=== PATIENT | male | born 1970 | race Caucasian/White ===

== ENCOUNTER 2017-11-03 09:50 | Day surgery (SDC) | payer OTHER ==
[~2017-11-03] VITALS: Ht 182.9 cm; Wt 108.0 kg
== END 2017-11-03 12:26 | disposition home or self-care (01) ==
LOC: ORSCSDS 09:50
PROVIDERS: Orthopaedic Surgery
PROC: 01N50ZZ Release Median Nerve, Open Approach (ICD-10-PCS; principal; 2017-11-03 11:00)
DX: G56.01 Carpal tunnel syndrome, right upper limb (principal); E66.9 Obesity, unspecified; Z68.32 Body mass index [BMI] 32.0-32.9, adult; Z87.891 Personal history of nicotine dependence
CPT/HCPCS: J0690; J2250; J7120

== ENCOUNTER → 2020-04-01 | Outpatient (CLI) | payer OTHER | END | disposition home or self-care (01) | LOC: LAB 17:21 → LAB SHORT 17:21 | DX: D18.01 Hemangioma of skin and subcutaneous tissue (principal); D48.5 Neoplasm of uncertain behavior of skin; L81.4 Other melanin hyperpigmentation; L08.9 Local infection of the skin and subcutaneous tissue, unspecified | CPT/HCPCS: 87070; 87077; 87147; 87186; 87205 ==

== ENCOUNTER 2025-01-13 08:59 | Observation (INO) | payer OTHER ==
[~2025-01-13] VITALS: Ht 213.4 cm; Wt 115.5 kg
[2025-01-13] VITALS (7 sets, daily range): BP systolic 127–165; BP diastolic 81–101
[2025-01-13] MEDS ORDERED: Prinivil10 MG PO (09:27)
[2025-01-13 09:37] LABS: BASOPHILS ABSOLUTE AUTO 0.07 K/mm3 (0.00-0.23); BASOPHILS PERCENT AUTO 1 % (0-2); EOSINOPHILS ABSOLUTE AUTO 0.21 K/mm3 (0.00-0.68); EOSINOPHILS PERCENT AUTO 3 % (0-6); Hematocrit 47.8 % (37.0-53.0); Hemoglobin 17.2 g/dL (13.5-17.5); IMMATURE GRAN ABSOLUTE AUTO 0.03 K/mm3 (0.00-0.10); IMMATURE GRAN PERCENT AUTO 0 % (0-1); LYMPHOCYTES ABSOLUTE AUTO 1.68 K/mm3 (0.84-5.20); LYMPHOCYTES PERCENT AUTO 22 % (21-46); MONOCYTES ABSOLUTE AUTO 0.54 K/mm3 (0.16-1.47); MONOCYTES PERCENT AUTO 7 % (4-13); Mean Corpuscular HGB Conc 36.0 g/dL (31.5-36.5); Mean Corpuscular Volume 97 fL (80-100); NEUTROPHILS ABSOLUTE AUTO 5.06 K/mm3 (1.96-9.15); NEUTROPHILS PERCENT AUTO 67 % (41-73); NRBC ABSOLUTE 0.00 K/mm3 (0.00-0.02); NRBC Auto 0.0 /100 WBC (0.0-0.2); Platelet Count 185 K/mm3 (150-400); RDW Coefficient Variation 12.0 % (11.7-14.2); RDW Standard Deviation 42.1 fL (35.1-46.3)
[2025-01-13] MEDS ORDERED: NS 500 ML IV SCH (09:40)
[2025-01-13 10:05] LABS: Alanine Aminotransfer (ALT/SGP 38.0 U/L (12-78); Albumin, Blood 3.7 g/dL (3.4-5.0); Albumin/Globulin Ratio 1.1 (0.8-1.8); Anion Gap 7.0 mmol/L (3-11); Aspartate Aminotrans (AST/SGOT 26.0 U/L (12-37); Bilirubin, Total 0.7 mg/dL (0.1-1.0); Blood Urea Nitrogen 17.0 mg/dL (8-24); CO2, Blood 23.0 mmol/L (21-32); Calcium, Blood 8.4 mg/dL (8.5-10.1); Chloride, Blood 111.0 mmol/L (98-108); Creatinine, Blood 1.11 mg/dL (0.60-1.20); Globulin, Blood 3.3 g/dL (2.2-4.0); Glucose, Blood 110.0 mg/dL (70-99); Magnesium, Blood 2.1 mg/dL (1.6-2.4); Potassium, Blood 4.1 mmol/L (3.5-5.5); Sodium, Blood 137.0 mmol/L (136-145); Total Protein, Blood 7.0 g/dL (6.4-8.2)
[2025-01-13] MEDS ORDERED: Diltiazem HCl 5 MG / ML 5ML Vial IV ONE ×2 (10:25→10:35)
[2025-01-13 12:10] LABS: Thyroid Stimulating Hormone 1.22 uIU/mL (0.360-4.800)
[2025-01-13 14:28] LABS: CHOL/HDL RATIO 5.2; Cholesterol 214 mg/dL (50-200); HDL Cholesterol 41 mg/dL (>39); LDL/HDL RATIO 3.4; Low Density Lipoprotein Chol 138 mg/dL (0-110); Triglycerides 177 mg/dL (30-160); Very Low Density Lipoprot Chol 35 mg/dL (6-32)
--- NOTE | 2025-01-13 19:50 | NUR ---
ASSUMPTION OF CARE ASSUMED PT'S CARE AT 1900,BEDSIDE REPORT COMPLETED.PT LAYING IN BED,WIDE AWAKE WATCHING TV.PLAN OF CARE REVIEWED.PT DENIES PAIN,DENIES NUMBNESS/TINGLING,DENIES SOB,DENIES NAUSEA,DENIES NEEDS AT THIS TIME.CALL LIGHT AND PT'S ITEMS WITHIN REACH.MONITORING ONGOING PER CAREPLAN.
--- NOTE | 2025-01-13 19:59 | NUR ---
SHIFT REPORT PT IS A&O X 4, PLEASANT, COOPERATIVE W/ CARE, AND MAKES NEEDS KNOWN. IND/ SBA TO AMBULATE.PT DENIED PAIN ALL DAY, BUT DESCRIBED SLIGHT DISCOMFORT WITH HR FLUCTUATIONS W/ ACTIVITY. A. FIB CAUSED HR TO RANGE FROM 90s TO 150s PRIOR TO SPONTANEOUS CONVERSION TO NSR THIS EVENING. PT HAS SINCE MAINTAINED NSR 70s-80s. BPs STABLE, O2 SAT ABOVE 93% ON RM AIR. CARDIZEM DRIP PT WAS ADMITTED ON HAS SINCE BEEN SWITCHED TO PO. DONAVON CAME IN AND EDUCATED PT AND ON A. FIB AND PLAN OF CARE, PT AND SHOWED GOOD UNDERSTANDING AND WERE ENGAGED WITH CLARIFYING QUESTIONS. VSS.
[2025-01-14 03:21] VITALS: BP 130/88
[2025-01-14 05:18] LABS: BASOPHILS ABSOLUTE AUTO 0.06 K/mm3 (0.00-0.23); BASOPHILS PERCENT AUTO 1 % (0-2); EOSINOPHILS ABSOLUTE AUTO 0.28 K/mm3 (0.00-0.68); EOSINOPHILS PERCENT AUTO 4 % (0-6); Hematocrit 43.4 % (37.0-53.0); Hemoglobin 15.1 g/dL (13.5-17.5); IMMATURE GRAN ABSOLUTE AUTO 0.02 K/mm3 (0.00-0.10); IMMATURE GRAN PERCENT AUTO 0 % (0-1); LYMPHOCYTES ABSOLUTE AUTO 1.68 K/mm3 (0.84-5.20); LYMPHOCYTES PERCENT AUTO 23 % (21-46); MONOCYTES ABSOLUTE AUTO 0.64 K/mm3 (0.16-1.47); MONOCYTES PERCENT AUTO 9 % (4-13); Mean Corpuscular HGB Conc 34.8 g/dL (31.5-36.5); Mean Corpuscular Volume 95 fL (80-100); NEUTROPHILS ABSOLUTE AUTO 4.74 K/mm3 (1.96-9.15); NEUTROPHILS PERCENT AUTO 64 % (41-73); NRBC ABSOLUTE 0.00 K/mm3 (0.00-0.02); NRBC Auto 0.0 /100 WBC (0.0-0.2); Platelet Count 176 K/mm3 (150-400); RDW Coefficient Variation 12.1 % (11.7-14.2); RDW Standard Deviation 42.3 fL (35.1-46.3)
[2025-01-14 05:57] LABS: Alanine Aminotransfer (ALT/SGP 30.0 U/L (12-78); Albumin, Blood 3.1 g/dL (3.4-5.0); Albumin/Globulin Ratio 1.1 (0.8-1.8); Anion Gap 8.0 mmol/L (3-11); Aspartate Aminotrans (AST/SGOT 20.0 U/L (12-37); Bilirubin, Total 1.0 mg/dL (0.1-1.0); Blood Urea Nitrogen 15.0 mg/dL (8-24); CO2, Blood 24.0 mmol/L (21-32); Calcium, Blood 7.7 mg/dL (8.5-10.1); Chloride, Blood 111.0 mmol/L (98-108); Creatinine, Blood 1.02 mg/dL (0.60-1.20); Globulin, Blood 2.9 g/dL (2.2-4.0); Glucose, Blood 113.0 mg/dL (70-99); Potassium, Blood 3.8 mmol/L (3.5-5.5); Sodium, Blood 139.0 mmol/L (136-145); Total Protein, Blood 6.0 g/dL (6.4-8.2)
--- NOTE | 2025-01-14 06:44 | NUR ---
PT MONITORED DURING THE SHIFT.NO C/O CHEST PAIN/PRESSURE/PALPITATION.PT USED THE CALL LIGHT APPROPRIATELY,AMBULATED TO THE BATHROOM INDEPENDENTLY.SINUS RHYTHM IN THE 80'S ON THE MONITOR.PT SLEEPING AT THIS TIME,BREATHING EVEN AND NONLABORED.PT EASILY AROUSABLE.PT DENIES PAIN,DENIES NEEDS.CALL LIGHT AND PT'S ITEMS WITHIN REACH.MONITORING ONGOING PER CAREPLAN.
[2025-01-14 08:03] VITALS: BP 139/96
[2025-01-14] MEDS ORDERED: Diltiazem HCl 300 MG Cap.CD PO ONE (08:32)
[2025-01-14 09:31] VITALS: BP 120/95
--- NOTE | 2025-01-14 09:33 | NUR ---
PATIENT ALERT AND ORIENTED X4. DENIES PAIN. UP TO BATHROOM WITH SBA FOR SAFETY. DENIES PAINS. TELE SHOWING SINUS RHYTHM WITH HR 80-90'S. DENIES CHEST PAIN/PRESSURE/PALPITAITONS. IV SALINE LOCKED. NO SIGNS OF EDEMA. ON ROOM AIR, LUNG SOUNDS CLEAR. DENIES SOB/COUGH. TOLERATING PO DIET. DENIES ABDOMINAL PAIN/NAUSEA. USING BATHROOM IND. SKIN C/D/I. AT BEDSIDE. DR. JAY ROUND THIS AM, THIS RN AT BEDSIDE. PLAN FOR DISCHARGE TODAY. CALL LIGHT IN REACH. DENIES NEEDS AT THIS TIME.
[2025-01-14] MEDS ORDERED: ELIQUIS5 M2 PO (10:58)
[2025-01-14] MEDS ORDERED: DILT180 PO (10:59)
--- NOTE | 2025-01-14 11:24 | NUR ---
DISCHARGE: NO ACUTE CHANGES. AT BEDSIDE FOR DISCHARGE. THIS RN REVIEWED NEW MEDICATIONS, FOLLOW UP WITH PCP AND CARDIOLOGY, SIGNS AND SYMPTOMS OF WHEN TO RETURN AND MEDICATIONS FAXED TO [facility]. IV REMOVED. PATIENT LEFT UNIT WITH ALL PERSONAL BELONGINGS AND DISCHARGE PACKET.
== END 2025-01-14 11:34 | disposition home or self-care (01) ==
LOC: ER 08:59 → PCU 09:00
PROVIDERS: Student in an Organized Health Care Education/Training Program; ADMIT Family Medicine
DX: I48.91 Unspecified atrial fibrillation (principal); I10 Essential (primary) hypertension; E78.5 Hyperlipidemia, unspecified; F10.20 Alcohol dependence, uncomplicated; Z79.899 Other long term (current) drug therapy
CPT/HCPCS: 36415; 71046; 80053; 80061; 83735; 84439; 84443; 84484; 85025; 93005; 93010; 93306; 96365; 96366; 99285-25; A9270; G0378; J7030